=== PATIENT | female | born 1970 | race Caucasian/White ===

== ENCOUNTER 2016-12-28 20:18 | Emergency (ER) | payer BC ==
[2016-12-28] MEDS ORDERED: Ondansetron 4 MG/2 ML SDV IVPUSH ONE (20:47)
[2016-12-28] MEDS ORDERED: Nalbuphine 10 MG/1 ML Vial IVPUSH ONE (20:47)
[2016-12-28] MEDS ORDERED: Sodium Chloride 0.9% 1,000 ML IV SCH (21:00)
[2016-12-28 21:12] LABS: CHLORIDE,CL 108 mmol/L (98-110); SODIUM,NA 141 mmol/L (136-146)
--- NOTE | 2016-12-28 21:19 | EDM.PDOC ---
ED HPI GENERAL MEDICAL PROBLEM - General Chief Complaint: Abdominal Pain Stated Complaint: PT HAS STOMACH PAINS Time Seen by Provider: 12/28/16 20:40 Source of Information: Reports: Patient, Family - History of Present Illness INITIAL COMMENTS - FREE TEXT/NARRATIVE: She presents to the ED with about two hours of RUQ abdominal pain. It seemed to be triggered by eating a jalapeno sausage. No similar prior episodes. no known history of prior gallbladder disease nausea no fever no dysuria She has had a bilateral tubal ligation. Right Lower Abdominal Pain Score (Numeric/FACES): 7 - Related Data Allergies Allergy/AdvReac Type Severity Reaction Status Date / Time No Known Allergies Allergy Verified 12/28/16 20:19 Home Meds: Home Meds . [No Known Home Meds] 04/27/15 [History] Past Medical History - Past Health History Medical/Surgical History: Denies Medical/Surgical History HEENT History: Reports: None Cardiovascular History: Denies: Afib, Heart Failure, High Cholesterol, Hypertension, ID Respiratory History: Reports: None. Denies: COPD Gastrointestinal History: Reports: None. Denies: Cirrhosis Genitourinary History: Reports: None. Denies: Chronic Renal Insuffiency [employer] History: Reports: None Musculoskeletal History: Reports: None Neurological History: Denies: MS Psychiatric History: Reports: None Endocrine/Metabolic History: Reports: None Hematologic History: Denies: Bleeding Disorder Oncologic (Cancer) History: Reports: None Dermatologic History: Reports: None - Infectious Disease History Infectious Disease History: Reports: Chicken Pox, Measles - Past Surgical History HEENT Surgical History: Reports: None Respiratory Surgical History: Reports: None Female Surgical History: Reports: None Musculoskeletal Surgical History: Reports: None Social & Family History - Family History Family Medical History: Noncontributory - Tobacco Use Smoking Status *Q: Current Every Day Smoker Years of Tobacco use: 29 Packs/Tins Daily: 0.5 Second Hand Smoke Exposure: No - Recreational Drug Use Recreational Drug Use: No ED ROS GENERAL - Review of Systems Review Of Systems: See Below Constitutional: Denies: Fever, Chills Respiratory: Denies: Shortness of Breath, Cough, Sputum Cardiovascular: Denies: Chest Pain GI/Abdominal: Reports: Abdominal Pain ED EXAM, GI/ABD - Physical Exam Exam: See Below Text/Narrative:: alert appears uncomfortable neck supple normal mentation no respiratory compromise abdomen: moderate RUQ tenderness; soft ; no rebound tenderness no ankle edema Course - Vital Signs Last Recorded V/S: Last Vital Signs Temp 97.9 F 12/28/16 20:19 Pulse 93 12/28/16 20:19 Resp 16 12/28/16 20:19 BP 137/65 12/28/16 20:19 Pulse Ox 98 12/28/16 20:19 - Orders/Labs/Meds Orders: Active Orders 24 hr Category Date Time Status Abdomen Ltd [US] Stat Exams 12/28/16 20:49 Taken Sodium Chloride 0.9% [Normal Saline] 1,000 ml Med 12/28/16 21:00 Active IV ASDIRECTED Medication Orders Sodium Chloride (Normal Saline) 1,000 mls @ 125 mls/hr IV ASDIRECTED KYLE Last Admin: 12/28/16 21:02 Dose: 125 mls/hr Labs: Laboratory Tests 12/28/16 12/28/16 12/28/16 Range/Units 20:04 20:04 20:04 WBC 13.86 H (4.0-11.0) K/uL RBC 4.46 (4.30-5.90) M/uL Hgb 13.7 (12.0-16.0) g/dL Hct 39.7 (36.0-46.0) % MCV 89.0 (80.0-98.0) fL MCH 30.7 (27.0-32.0) pg MCHC 34.5 (31.0-37.0) g/dL RDW Std Deviation 45.9 (28.0-62.0) fl RDW Coeff of Sarah 14 (11.0-15.0) % Plt Count 208 (150-400) K/uL MPV 10.60 (7.40-12.00) fL Neut % (Auto) 77.7 (48.0-80.0) % Lymph % (Auto) 13.5 L (16.0-40.0) % [place] % (Auto) 8.1 (0.0-15.0) % Eos % (Auto) 0.5 (0.0-7.0) % Baso % (Auto) 0.2 (0.0-1.5) % Neut # (Auto) 10.8 H (1.4-5.7) K/uL Lymph # (Auto) 1.9 (0.6-2.4) K/uL [place] # (Auto) 1.1 H (0.0-0.8) K/uL Eos # (Auto) 0.1 (0.0-0.7) K/uL Baso # (Auto) 0.0 (0.0-0.1) K/uL Nucleated RBC % 0.0 /100WBC Nucleated RBCs # 0 K/uL Sodium 141 (136-146) mmol/L Potassium 3.4 L (3.5-5.1) mmol/L Chloride 108 (98-110) mmol/L Carbon Dioxide 24 (21-31) mmol/L BUN 8 (6.0-23.0) mg/dL Creatinine 0.7 (0.6-1.5) mg/dL Est Cr Clr Drug Dosing 83.95 mL/min Estimated GFR (MDRD) > 60.0 ml/min Glucose 124 H (60-110) mg/dL Calcium 9.2 (8.8-10.8) mg/dL Magnesium 1.5 (1.5-2.3) mEq/L Total Bilirubin 0.4 (0.1-1.5) mg/dL AST 14 (5-40) IU/L ALT 12 (8-54) IU/L Alkaline Phosphatase 55 (40-150) Total Protein 7.1 (6.0-8.0) g/dL Albumin 4.0 (3.5-5.0) g/dL Globulin 3.1 (2.0-3.5) g/dL Albumin/Globulin Ratio 1.3 (1.3-2.8) Amylase 37 (10-90) U/L Lipase 16 (7-80) U/L HCG, Qual NEGATIVE (NEG) Meds: Medications Generic Name Dose Route Start Last Admin Trade Name Freq PRN Reason Stop Dose Admin Sodium Chloride 1,000 mls @ 125 mls/hr 12/28/16 21:00 12/28/16 21:02 Normal Saline IV 125 mls/hr ASDIRECTED KYLE Administration Discontinued Medications Generic Name Dose Route Start Last Admin Trade Name Freq PRN Reason Stop Dose Admin Nalbuphine HCl 10 mg 12/28/16 20:47 12/28/16 21:02 Nubain IVPUSH 12/28/16 20:48 10 mg ONETIME ONE Administration Ondansetron HCl 4 mg 12/28/16 20:47 12/28/16 21:02 Zofran IVPUSH 12/28/16 20:48 4 mg ONETIME ONE Administration - Re-Assessments/Exams Free Text/Narrative Re-Assessment/Exam: 12/28/16 22:59 she is feeling much better now. Departure - Departure Time of Disposition: 22:59 Disposition: Home, Self-Care 01 Condition: Good Clinical Impression: Biliary colic - Discharge Information Referrals: PCP,None [Primary Care Provider] - Forms: ED Department Discharge Additional Instructions: follow up with General surgeon clear liquid diet; advance diet as tolerated avoid large meals and fatty or spicy foods. - My Orders Last 24 Hours: My Active Orders 12/28/16 20:49 Abdomen Ltd [US] Stat 12/28/16 21:00 Sodium Chloride 0.9% [Normal Saline] 1,000 ml IV ASDIRECTED - Assessment/Plan Last 24 Hours: My Active Orders 12/28/16 20:49 Abdomen Ltd [US] Stat 12/28/16 21:00 Sodium Chloride 0.9% [Normal Saline] 1,000 ml IV ASDIRECTED
[2016-12-28 23:52] VITALS: BP 127/63
--- NOTE | 2016-12-29 11:09 | US ---
EXAM DATE: 12/28/16 PATIENT'S AGE: 46 Patient: ALISA VALADEZ Facility: [place], [place] Site . Site : 1970 Study: US Abdomen [id number]/28/2016 10:19:28 PM Ordering Physician: Gerber Carpio Final Report: INDICATION: Right upper quadrant pain. TECHNIQUE: Ultrasound abdomen limited. Sonographic images of the right upper quadrant were obtained using reed-scale and color Doppler images. COMPARISON: None available FINDINGS: Liver: Mildly coarse hepatic echotexture. No masses. No intrahepatic biliary dilatation. Gallbladder: Distended gallbladder containing sludge. No shadowing gallstones seen. No significant gallbladder wall thickening. Possible small pericholecystic fluid. A reported positive sonographic Watson`s sign. Common bile duct: 4 mm. Pancreas: No gross abnormality seen in the visualized portions. Right kidney: 10.9 cm. Normal echotexture and cortex. No masses, stones, or hydronephrosis. IMPRESSION: A distended gallbladder containing sludge. No shadowing gallstones seen. Possible small pericholecystic fluid with a reported reported positive sonographic Watson`s sign, however no significant gallbladder wall thickening. Correlate clinically. If indicated, correlate with HIDA scan. Coarse hepatic echotexture. Correlate with hepatic enzymes. Dictated by Oscar Rojas MD @ 12/28/2016 10:26:15 PM Dictated by: Oscar Rojas MD @ 12/28/2016 22:26:27 (Electronic Signature) Report Signed by Proxy. [facility]if[facility]
== END 2016-12-28 23:18 | disposition home or self-care (01) ==
LOC: MW.ED 20:18
DX: K80.50 Calculus of bile duct without cholangitis or cholecystitis without obstruction (principal); I11.0 Hypertensive heart disease with heart failure; I50.9 Heart failure, unspecified; F17.210 Nicotine dependence, cigarettes, uncomplicated
CPT/HCPCS: 76705; 80053; 82150; 83690; 83735; 84703; 85025; 96361; 96374; 96375; 99284; J2300; J2405; J7040; 99282

== ENCOUNTER 2017-03-08 18:13 | Emergency (ER) | payer BC ==
--- NOTE | 2017-03-08 19:12 | EDM.PDOC ---
ED HPI GENERAL MEDICAL PROBLEM - General Chief Complaint: Respiratory Problem Stated Complaint: SICK Time Seen by Provider: 03/08/17 19:07 - History of Present Illness INITIAL COMMENTS - FREE TEXT/NARRATIVE: HISTORY AND PHYSICAL: History of present illness: The patient is a 46-year-old female with no stated pre-existing medical problems no pulmonary problems presents with 3 days of cough occasionally productive of phlegm bodyaches fevers chills sore throat. Just complains of nasal congestion and sinus pressure. She has tried ghrc-lux-weoghmo mix products as well as Mucinex and is not getting any better so she came for evaluation. She's not having nausea and vomiting and no abdominal pain. She denies and did not get her flu shot this year. Patient has not taken her temperature at home but has subjective fever and chills Review of systems: As per history of present illness and below otherwise all systems reviewed and negative. Past medical history: As per history of present illness and as reviewed below otherwise noncontributory. Surgical history: As per history of present illness and as reviewed below otherwise noncontributory. Social history: No reported history of drug or alcohol abuse. Family history: As per history of present illness and as reviewed below otherwise noncontributory. Physical exam: General: Well-developed well-nourished female who is speaking clearly and easily in the ED vital signs were noted by me HEENT: Atraumatic, normocephalic, pupils reactive, negative for conjunctival pallor or scleral icterus, mucous membranes moist, throat clear of exudates but there is erythema, uvula is midline and there is no cervical adenopathy or nuchal rigidity, neck supple, nontender, trachea midline. Lungs: Clear to auscultation with slightly diminished breath sounds in the bases but no work of breathing stridor or wheezing, breath sounds equal bilaterally, chest nontender. Heart: S1S2, regular, negative for clicks, rubs, or JVD. Abdomen: Soft, nondistended, nontender. Negative for masses or hepatosplenomegaly. Negative for costovertebral tenderness. Pelvis: Stable nontender. Genitourinary: Deferred. Rectal: Deferred. Extremities: Atraumatic, negative for cords or calf pain. Neurovascular unremarkable. Neuro: Awake, alert, oriented. Cranial nerves II through XII unremarkable. Cerebellum unremarkable. Motor and sensory unremarkable throughout. Exam nonfocal. Diagnostics: Rapid strep influenza chest x-ray Therapeutics: [] Discussed with the patient and family at bedside that as the patient has had symptomatology for over 3 days she is outside of the window for Tamiflu. Advised on symptomatic care and need for follow-up Impression: Influenza A Definitive disposition and diagnosis as appropriate pending reevaluation and review of above. Bilateral Chest Pain Score (Numeric/FACES): 7 - Related Data Allergies Allergy/AdvReac Type Severity Reaction Status Date / Time No Known Allergies Allergy Verified 12/28/16 20:19 Home Meds: Home Meds . [No Known Home Meds] 04/27/15 [History] Past Medical History - Past Health History Medical/Surgical History: Denies Medical/Surgical History HEENT History: Reports: None Respiratory History: Reports: None Gastrointestinal History: Reports: None Genitourinary History: Reports: None [employer]ER History: Reports: None Musculoskeletal History: Reports: None Psychiatric History: Reports: None Endocrine/Metabolic History: Reports: None Oncologic (Cancer) History: Reports: None Dermatologic History: Reports: None - Infectious Disease History Infectious Disease History: Reports: Chicken Pox, Measles - Past Surgical History HEENT Surgical History: Reports: None Respiratory Surgical History: Reports: None Female Surgical History: Reports: None Musculoskeletal Surgical History: Reports: None Social & Family History - Family History Family Medical History: Noncontributory - Tobacco Use Smoking Status *Q: Current Every Day Smoker Years of Tobacco use: 29 Packs/Tins Daily: 1 Second Hand Smoke Exposure: No - Caffeine Use Caffeine Use: Reports: None - Recreational Drug Use Recreational Drug Use: No ED ROS GENERAL - Review of Systems Review Of Systems: ROS reveals no pertinent complaints other than HPI. ED EXAM, GENERAL - Physical Exam Exam: See Below (See dictation) Course - Vital Signs Last Recorded V/S: Last Vital Signs Temp 37.1 C 03/08/17 18:55 Pulse 105 H 03/08/17 18:55 Resp 18 03/08/17 18:55 BP 126/68 03/08/17 18:55 Pulse Ox 97 03/08/17 18:55 - Orders/Labs/Meds Orders: Active Orders 24 hr Category Date Time Status Chest 2V [CR] Stat Exams 03/08/17 19:10 Taken CULTURE STREP A CONFIRMATION [RM] Stat Lab 03/08/17 19:14 Results STREP SCRN A RAPID W CULT CONF [RM] Stat Lab 03/08/17 19:14 Results Departure - Departure Time of Disposition: 19:59 Disposition: Home, Self-Care 01 Condition: Good Clinical Impression: Influenza A - Discharge Information Referrals: PCP,None [Primary Care Provider] - Forms: ED Department Discharge Additional Instructions: The following information is given to patients seen in the emergency department who are being discharged to home. This information is to outline your options for follow-up care. We provide all patients seen in our emergency department with a follow-up referral. The need for follow-up, as well as the timing and circumstances, are variable depending upon the specifics of your emergency department visit. If you don't have a primary care physician on staff, we will provide you with a referral. We always advise you to contact your personal physician following an emergency department visit to inform them of the circumstance of the visit and for follow-up with them and/or the need for any referrals to a consulting specialist. The emergency department will also refer you to a specialist when appropriate. This referral assures that you have the opportunity for followup care with a specialist. All of these measure are taken in an effort to provide you with optimal care, which includes your followup. Under all circumstances we always encourage you to contact your private physician who remains a resource for coordinating your care. When calling for followup care, please make the office aware that this follow-up is from your recent emergency room visit. If for any reason you are refused follow-up, please contact the [facility] emergency department at and ask to speak to the emergency department charge nurse. [facility] Primary care- Internal Medicine and Family [address] [address] Push hydration and rest. Use ugfy-pyj-ldplhur Tylenol/ibuprofen for fever and bodyaches and use eqyp-gzr-diozdnz Claritin/Marie/Benadryl for your sinus congestion. Call Mr. Myron schwartz at sleep times and the influenza will run its course. Please contact one of our clinic provide us her further care and evaluation in the next 2 days and return to ER as needed and as discussed - My Orders Last 24 Hours: My Active Orders 03/08/17 19:10 Chest 2V [CR] Stat 03/08/17 19:14 CULTURE STREP A CONFIRMATION [RM] Stat STREP SCRN A RAPID W CULT CONF [RM] Stat - Assessment/Plan Last 24 Hours: My Active Orders 03/08/17 19:10 Chest 2V [CR] Stat 03/08/17 19:14 CULTURE STREP A CONFIRMATION [RM] Stat STREP SCRN A RAPID W CULT CONF [RM] Stat
[2017-03-08 20:12] VITALS: BP 117/63
--- NOTE | 2017-03-09 10:10 | CR ---
EXAM DATE: 03/08/17 PATIENT'S AGE: 46 Patient: ALISA VALADEZ Facility: [place], [place] Site . Site : 1970 Study: XRay Chest [id number] 7:43:19 PM Ordering Physician: Alexia Penny Final Report: INDICATION: Cold/flu symptoms x3d. Congestion. TECHNIQUE: Chest 2 views. COMPARISON: None. FINDINGS: Cardiovascular and mediastinum: Heart size and vasculature are normal in caliber and appearance. Mediastinum is within normal limits. Lungs and pleural spaces: Lungs are clear. No sign of infiltrate or mass. No sign of pleural effusion. No pneumothorax. Bones and soft tissues: No significant findings. IMPRESSION: Unremarkable chest. Dictated by: Bill Martinez MD @ 03/08/2017 19:53:33 (Electronic Signature) Report Signed by Proxy. [facility]
== END 2017-03-08 20:13 | disposition home or self-care (01) ==
LOC: MW.ED 18:13
DX: J10.1 Influenza due to other identified influenza virus with other respiratory manifestations (principal); F17.210 Nicotine dependence, cigarettes, uncomplicated
CPT/HCPCS: 71046; 71046-26; 87081; 87804; 87880; 99283